=== PATIENT | male | born 1935 | race Caucasian/White ===

== ENCOUNTER 2016-11-26 23:37 | Emergency (ER) | payer MEDICARE, OTHER ==
[~2016-11-26 23:37] MED LIST: ADULT ASPIRIN81 MG; ADULT ASPIRIN81 MG PO; ARTIFICIAL TEAR15 M8 OP; ASPIR 8181 MG; ASPIRIN325 MG; BACITRAYCIN PLU28 GM TP; BACTROBAN TP; BAYER CHEWABLE81 M2 PO; BISAC-EVAC10 MG PR; BL MAXEPA CAPSU1 CAP; BUPROPION HCL; CARBIDOPA-LEVO1 EA16 PO; CARBIDOPA/LEVODOPA; CITROMA296 ML PO; COMPAZINE10 MG PO; DESYREL50 MG PO; DULCOLAX10 MG/SUPP RC; ENEMA133 M4 PR; FENOFIBRATE160 MG PO; FLUDROCORTISON0.1 M1 PO; HUMALOG100 U/ML; HUMALOG100 U/ML SQ; HUMULIN R100 U/ML SQ; HYDROCHLOROTHIA25 MG PO; INSULIN ASPART; INSULIN LISPRO; K-PHOS NEUTRAL250 M1 PO; LANTUS100 U/ML; LANTUS100 U/ML SC; LEVEMIR FL100 UNIT/2 SC; LEVEMIR100 UNITS/ SC; LEXAPRO10 M1 PO; LEXAPRO10 MG; LEXAPRO10 MG PO; LEXAPRO20 M2 PO; LEXAPRO20 MG; LIQUITEARS15 M1 OP; LISINOPRIL10 MG; LISINOPRIL20 M1 PO; LISINOPRIL40 MG; LISINOPRIL40 MG PO; MAG-OXIDE400 MG; MAGNESIUM250 M2 PO; MAPAP325 M2 PO; MIDODRINE HCL5 M1 PO; MILK OF MAGNESIA PO; MIRALAX17 G1 PO; NAMENDA XR28 M1 PO; NAMENDA10 MG PO; NASONEX17 GM; NORVASC5 M2 PO; NOVOLOG FL100 UNIT/2 SC; NOVOLOG MIX 70/10 ML; NOVOLOG100 UNITS/ SC; POLYETHYLENE G255 G1 PO; PRAVACHOL20 MG; PRAVACHOL20 MG PO; PRAVASTATIN; PRAVASTATIN PO; PRAVASTATIN SOD20 M1 PO; REGULAR INSULIN; SINEMET 10-1001 EAC1 PO; SINEMET 25-1001 EAC1 PO; SINEMET CR 50/1 EACH PO; TAMSULOSIN HCL0.4 M1 PO; TRAZODONE HCL50 M1 PO; TRIGLIDE160 MG PO; TYLENOL325 MG PO; TYLENOL500 MG; WELLBUTRIN SR100 MG; ZETIA10 MG; [UNRECOGNIZED DRUG - OTHER]; [UNRECOGNIZED DRUG - REMARK]; carbidopa/levodopa
[2016-11-27 00:09] LABS: KETONE-BETA (WHOLE BLOOD) 0.1 mmol/L (0.0-0.6)
[2016-11-27 00:12] LABS: BASO % 0.2 % (0-2); EOS % 2.9 % (0-7); EOSINOPHIL ABSOLUTE COUNT 0.2 tho/cmm (0.0-0.7); HCT-HEMATOCRIT 35.9 % (36.0-53.5); HGB-HEMOGLOBIN 12.2 gm/dl (13.5-17.0); IMMATURE GRANULOCYTES ABSOLUTE 0.01 tho/cmm (0-0.03); IMMATURE GRANULOCYTES PERCENT 0.2 % (0-0.3); LYMPH % 27.6 % (20-45); LYMPH ABSOLUTE COUNT 1.8 tho/cmm (0.8-4.5); MCH (MEAN CORPUSCULAR HGB) 29.8 pg (28.0-32.0); MCV (MEAN CELL VOLUME) 87.6 fl (82.0-96.0); MEAN PLATELET VOLUME 10.3 cmc (9.4-12.4); MONO % 12.1 % (0-12); MONOCYTE ABSOLUTE COUNT 0.8 tho/cmm (0.0-1.2); NEUTROPHIL ABSOLUTE COUNT 3.8 tho/cmm (1.6-8.0); NEUTROPHIL-AUTOMATED 3.8 tho/cmm (1.6-8.0); PLATELET COUNT 203 tho/cmm (150-450); RED CELL DISTRIBUTION WIDTH 12.3 % (12.4-16.4); WHITE BLOOD COUNT 6.6 tho/cmm (4.0-10.0)
[2016-11-27] MEDS ORDERED: TYLENOL325 M2 PO (00:17)
[2016-11-27 00:25] LABS: ANION GAP 11 mmol/L (0-20); BLOOD UREA NITROGEN 25 mg/dl (6-24); CALCIUM 9.5 mg/dl (8.5-10.5); CARBON DIOXIDE-VENOUS 29 mmol/L (22-32); CHLORIDE 105 mmol/l (96-110); CREATININE 1.33 mg/dl (0.60-1.30); GLUCOSE 290 mg/dL (70-110); POTASSIUM 4.4 mmol/L (3.7-5.1); SODIUM 141 mmol/L (135-145); eGFR VALUE FOR BLACK 59 mL/Min
[2016-11-27 01:38] LABS: URINE LEUKOCYTE ESTERASE NEGATIVE (NEG); URINE PROTEIN SMALL (NEG); URINE SPECIFIC GRAVITY 1.005 (1.003-1.030)
[2016-11-27 01:43] LABS: URINE APPEARANCE CLEAR; URINE BILIRUBIN NEGATIVE (NEG); URINE BLOOD NEGATIVE (NEG); URINE COLOR PALE YELLOW; URINE GLUCOSE (UA) LARGE (NEG); URINE KETONE NEGATIVE (NEG); URINE NITRITE NEGATIVE (NEG)
[2016-11-27 01:45] LABS: URINE EPITHELIAL CELLS 0-2 /[HPF] (0-10); URINE RBC 0 /[HPF] (0-5); URINE WBC 0 /[HPF] (0-5)
== END 2016-11-27 02:37 ==
LOC: EDMED 23:37
PROVIDERS: Emergency Medicine
DX: S09.90XA Unspecified injury of head, initial encounter (principal); E86.0 Dehydration; E11.65 Type 2 diabetes mellitus with hyperglycemia; I25.10 Atherosclerotic heart disease of native coronary artery without angina pectoris; I51.9 Heart disease, unspecified; G20 Parkinson's disease; F03.90 Unspecified dementia, unspecified severity, without behavioral disturbance, psychotic disturbance, mood disturbance, and anxiety; Z79.4 Long term (current) use of insulin; Z79.82 Long term (current) use of aspirin; Z79.899 Other long term (current) drug therapy; Z95.1 Presence of aortocoronary bypass graft; Z90.89 Acquired absence of other organs
CPT/HCPCS: J7030